=== PATIENT | female | born 1950 | race Asian ===

== ENCOUNTER 2022-05-31 10:34 | Outpatient (CLI) | payer MEDICARE, OTHER | END 2022-05-31 10:35 | disposition home or self-care (01) | LOC: CSHULT 10:34 | PROVIDERS: ATTEND Internal Medicine Gastroenterology | DX: K59.09 Other constipation (principal); Z80.0 Family history of malignant neoplasm of digestive organs | CPT/HCPCS: 76700 ==

== ENCOUNTER 2025-02-16 13:33 | Outpatient (CLI) | payer MEDICARE, OTHER | END 2025-02-16 13:34 | disposition home or self-care (01) | LOC: CSHMAMMO 13:33 | PROVIDERS: ATTEND Family Medicine | DX: Z12.31 Encounter for screening mammogram for malignant neoplasm of breast (principal); Z78.0 Asymptomatic menopausal state; M81.0 Age-related osteoporosis without current pathological fracture | CPT/HCPCS: 77063; 77067; 77080 ==